=== PATIENT | male | born 1990 | race Native Hawaiian/Other Pacific Islander ===

== ENCOUNTER 2016-07-21 11:26 | Observation (INO) | payer OTHER ==
[~2016-07-21] VITALS: Ht 188 cm; Wt 61.0 kg
[2016-07-21 12:57] VITALS: BP 129/69; TEMP 98.6; Ht 188 cm; Wt 61.0 kg
[2016-07-21 14:29] LABS: PLATELET COUNT 200 K/uL (142-355)
[2016-07-21 14:43] LABS: SODIUM 135 mmol/L (136-145)
[2016-07-21] MEDS ORDERED: CONCERTA54 MG PO (15:15)
[2016-07-21 16:00] VITALS: BP 129/69; TEMP 98.6
[2016-07-21 19:53] VITALS: BP 112/62; TEMP 101.7
[2016-07-22 00:21] VITALS: BP 98/59; TEMP 100.1
[2016-07-22 05:37] VITALS: BP 118/57; TEMP 97.9
[2016-07-22 08:00] VITALS: BP 110/62; TEMP 98.5
[2016-07-22 12:00] VITALS: BP 120/67; TEMP 97.7
[2016-07-22 16:00] VITALS: BP 119/62; TEMP 98
== END 2016-07-22 19:48 | disposition home or self-care (01) ==
LOC: MED/SURG 11:26
PROVIDERS: ADMIT Student in an Organized Health Care Education/Training Program
DX: E86.0 Dehydration (principal); R11.2 Nausea with vomiting, unspecified; J09.X3 Influenza due to identified novel influenza A virus with gastrointestinal manifestations; R00.0 Tachycardia, unspecified
CPT/HCPCS: 80053; 85027; 87040; 87804; 96360; 96361; 99220; G0378; G0379

== ENCOUNTER 2016-08-02 15:11 | Outpatient (CLI) | payer OTHER ==
[~2016-08-02 15:11] MED LIST: CONCERTA54 MG PO
== END 2016-08-02 15:34 | disposition short-term general hospital (02) ==
LOC: AMB 15:11
DX: R07.89 Other chest pain (principal); R06.4 Hyperventilation
CPT/HCPCS: A0425; A0427